=== PATIENT | female | born 1970 | race Caucasian/White ===

== ENCOUNTER → 2017-06-27 | Outpatient (CLI) | payer OTHER, MEDICAID ==
[~2017-06-27] MED LIST: ALPRAZOLAM0.5 M3 PO; CARAFATE1 GM PO; FLUOXETINE10 MG PO; FUROCOT20 MG PO; LAMICTAL1 TAB PO; LORTAB 500 MG-71 TAB PO; NAPROXEN500 MG PO; PANTOPRAZOLE SO40 M1 PO; QUASENSE 30 MCG1 TAB PO; TOPAMAX100 MG PO; Tizanidine HCl2 MG OR
--- NOTE | 2017-06-27 12:02 | RADIOLOGY REPORT PS360 ---
MRI-L-SPINE W/O, MRI-3D RENDERING/MYELOGRAM HISTORY: LUMBAGO WITH SCIATICA, RIGHT SIDE ORDERING PHYSICIAN: Adelita Robins APRN PATIENT AGE: 47 years COMPARISON: None TECHNIQUE: Standard multiplanar multiecho sequences are performed without contrast. 3-D MIP and myelographic images are also rendered and reviewed FINDINGS: There is normal alignment. The spinal cord is at the L2 level. There is mild disc desiccation T11-T12, T12-L1, and L1-L2. L2-L3: Unremarkable. L3-L4: Mild facet and ligamentum flavum hypertrophy with mild bilateral lateral recess narrowing. L4-L5: Minimal concentric bulging disc along with facet and ligamentum flavum hypertrophy with mild bilateral lateral recess and foraminal narrowing L5-S1: Mild facet hypertrophic change with mild bilateral foraminal narrowing. No disc herniation or canal stenosis. IMPRESSION: 1. Mild lumbar spondylosis with mild facet and ligamentum hypertrophy with mild bilateral lateral recess narrowing at L3-L4 L4-L5 and mild bilateral foraminal narrowing at L4-5 and L5-S1. 2. Minimal bulging disc at L4-L5. 3. No canal stenosis or disc herniation
== END ==
LOC: RAD 06-23 09:30
DX: M54.41 Lumbago with sciatica, right side (principal)